=== PATIENT | female | born 1955 | race Caucasian/White ===

== ENCOUNTER → 2020-08-24 | Outpatient (CLI) | payer BC ==
[~2020-08-24] MED LIST: ALPRAZOLAM ER1 MG PO; CLEOCIN HCL300 MG PO; DESYREL150 MG PO; ESTRACE1 MG PO; HYDROCHLOROTHIA25 M1 PO; LOPRESSOR 50 MG50 M1; LOPRESSOR50 PO; MEDROLDOSEPACK PO; MEDROXYPROGESTE10 MG PO; MELOXICAM7.5 MG; PREVAGEN PO; PROTONIX40 M4 PO; RESTORIL15 MG PO; ROSUVASTATIN CA40 MG PO; SINGULAIR 10 MG10 M1 PO; THYROID OTC PO; TIZANIDINE HCL4 M1 PO; TRAMADOL 50 MG50 MG; VOLTAREN GEL 1100 G1 TOP
--- NOTE | ~2020-08-24 | PAINCON ---
[address] [address] PAIN MANAGEMENT CONSULTATION Name: ELMER WHITE Room: [facility] Harjeet.Kiran.#: [id number] Admission: 08/24/20 Attend Phys: Noel Zafar MD Discharge: Date of : 57 Report #: [id number] THIS REPORT FOR: //name// cc: Jocy Da Silva MD, Mohd I. MD ~ THIS REPORT FOR: //name// CC: Jocy Zafar DATE OF SERVICE: 08/24/2020 CHIEF COMPLAINT: Pain from 1-2 years. HISTORY: The patient is a 65-year-old female who has been referred to the Pain Clinic. The patient states that she has pain that is shooting from her right shoulder and down into her hand. She has pain across her chest and upper back. Also, notes some pain in her spine. She has pain in the lower back as well as pain in the hips. Notes that the pain is worse when she is lifting, bending and sometimes lying back. She is not sure of anything that significantly changed the pain. She describes it as continuous, steady, constant, cramping, burning, shooting, aching, crushing, pulling, throbbing, pounding, sharp, stabbing, tender, and rates it as an 8.5 on a scale of 1-10. She has tried nonsteroidal anti-inflammatory medications. Denies any real change in bowel or bladder function. Mini activities cause her problems with back problems. Feels that she cannot walk very far before she becomes winded. Has difficulty doing loading the fire medic. Grandson is ____ increased activity can be problematic. She is busy watching her baby grandchildren. Her daughter has moved in with her. She injured her left hip about 35 years ago. In the past, she had used hydrocodone. She has noted some ____ of her weight, going up and down in the past. Has some neck pain. Does have an area where a PICC line was inserted in a somewhat uncomfortable to touch. Has tried tramadol and did not feel that this medication helped significantly. She has had an x-ray of her neck and said that she has had some fusion of two of the vertebrae in the neck area. Has had back pain most of her life. Does have somewhat of a constant cough with production of mucus. Has used Ambien because of difficulty with sleeping. ALLERGIES: PENICILLIN, STATINS -- HMG-COA REDUCTASE INHIBITORS, OXYCODONE. CURRENT MEDICATIONS: Metoprolol 50 mg, Singulair 10 mg, Protonix 40 mg, rosuvastatin 40 mg, tizanidine 4 mg, trazodone 150 mg at bedtime, Prevagen 10 mg, thyroid [id number]-hwuubdj 1 tab. PAST MEDICAL HISTORY: Anemia, hypertension, hepatitis, stomach problems, emotional problems, joint disease/arthritis, [place] [address] PAIN MANAGEMENT CONSULTATION Name: ELMER WHITE Room: [facility] ERVIN Ferrer#: [id number] Admission: 08/24/20 Attend Phys: Noel Zafar MD Discharge: Date of : 57 Report #: [id number] PAST SURGICAL HISTORY: on 11/26/1987, kidney stone removal, left hand surgery. SOCIAL HISTORY: She is retired, has not worked for the last 2 years. REVIEW OF SYSTEMS: Weight changes, decreased appetite, fever, night sweats, fatigue, headaches, wears glasses, blurred or double vision, hearing loss, sore throat, swollen glands, chest pain, shortness of breath while lying flat, swelling of feet and hand, chronic frequent coughs, shortness of breath, asthma, wheezing, loss of appetite, change in bowel movements, nausea, vomiting, painful bowel movements, constipation, abdominal pain, wakens to urinate, kidney stones, joint pain, joint stiffness with swelling, weakness of muscles and joints, muscle cramps, back pain, difficulty walking, rash, itching, frequent recurring headaches, lightheadedness, dizziness, numbness and tingling sensation, memory loss, confusion, depression, insomnia, easy bruising, anemia, enlarged glands. LABORATORY DATA: MRI of the cervical spine dated 06/11/2020. 1. C3-C4. Bulky spurring on the right projection posteriorly with resultant right lateral recess stenosis. Moderate to marked right facet arthrosis and facet hypertrophy. Severe right neural foraminal stenosis. 2. C3-C4 slight uncovering of the disk space secondary to grade 1 anterolisthesis. Hsdg-me-brxvolmj spinal canal stenosis. Bilateral uncinate hypertrophy. Moderate bilateral facet arthrosis with facet hypertrophy. Moderate right and iepi-wx-vsslqqyi left neural foraminal stenosis. 3. C5-C6 disk space. No disk bulge or herniation. No spinal canal stenosis. Mild right facet arthrosis and facet hypertrophy. No neural foraminal stenosis. 4. C6-C7, minimal central disc bulge. No spinal canal stenosis. Mild bilateral uncinate hypertrophy. Mild bilateral facet arthropathy and facet hypertrophy. Mild right neural foraminal narrowing. PAIN CLINIC ASSESSMENT/PQRS: 1. Height 5 feet 2 inches, weight 170 pounds, BMI is 31. 2. Vital signs: Blood pressure 143/85, heart rate 70, respiratory rate 16, room air saturation 95%, temperature 97.6. 3. Pain, 10. 4. Fall history: The patient has not fallen in the last 3 months. 5. History of osteoarthritis. The patient has some arthritic changes in her neck. 6. The patient is not being treated for rheumatoid arthritis. 7. Blood thinner. The patient is not on a blood thinning medication. 8. Hypertension. The patient is being treated for hypertension. 9. Opioids greater than 6 weeks. The patient is not receiving opioids at this juncture. 10. Risk assessment tool, moderate for use of opioids. 11. Functional assessment tool reviewed, . [place] [address] PAIN MANAGEMENT CONSULTATION Name: CINDYELMER ANN Room: [facility]#: [id number] Admission: 08/24/20 Attend Phys: Noel Zafar MD Discharge: Date of : 57 Report #: [id number] 12. Recreational drug use. The patient denies. 13. Tobacco: The patient denies use of tobacco. 14. Alcohol. The patient denies frequent use of alcoholic beverages. PHYSICAL EXAMINATION: GENERAL: The patient is a well-developed, well-nourished white female. Appears her stated age. She is alert and oriented x 3. Her affect is appropriate. Speech is fluent. HEENT: Normocephalic, atraumatic. Extraocular eye muscles intact. The patient is wearing a facial covering. MUSCULOSKELETAL: The patient complains of some numbness and tingling, pins and needles sensation in her right arm. Has stabbing pains in the shoulders, hips. Has numbness and tingling in the low back area. Has pain in the hips, knees, generalized low back pain, upper neck pain, pain in the area of the neck with movement. The patient has a number of trigger points in the mid back, upper back, neck area, shoulder area pain and discomfort down into her forearm, some discomfort in her hand on the right side. IMPRESSION: 1. Myofascial pain. 2. Anemia. 3. Hypertension. 4. Hepatitis. 5. Stomach problems. 6. Emotional problems. 7. Joint disease/arthritis. 8. Cancer. 9. Multilevel cervical spinal canal stenosis, most pronounced at C4-C5 with xbqx-tj-[id number]. RECOMMENDATIONS: We discussed treatment options with the patient. At this juncture, the patient has a global complaint of myofascial pain and discomfort. We discussed the possibility of trigger point injections in the future. Oftentimes trigger points can be helpful when a definite area of pain localized. The patient had such global pain at this juncture, it would be impossible to adequately inject trigger points. I would recommend the patient to first try physical therapy. She will try physical therapy 3 times a week for the next 3 weeks. The patient will return to the Pain Clinic, at which time we will then evaluate for possible use of trigger point injections. Discussed the risk and benefits of nonsteroidal anti-inflammatory medications. I think that nonsteroidal anti-inflammatory medications like Mobic might be helpful. Possibility of a trial of a Medrol Dosepak [place] [address] PAIN MANAGEMENT CONSULTATION Name: ELMER WHITE Room: [facility] Nabil#: [id number] Admission: 08/24/20 Attend Phys: Noel Zafar MD Discharge: Date of : 57 Report #: [id number] We would like to thank you for letting us participate in her care. We hope she continues to improve. By: [id number]. Lonnie Zafar MD /nt
== END ==
LOC: M.PC 09:27
PROVIDERS: ATTEND Anesthesiology Pain Medicine
DX: M48.02 Spinal stenosis, cervical region (principal); M79.10 Myalgia, unspecified site; D64.9 Anemia, unspecified; I10 Essential (primary) hypertension